=== PATIENT | female | born 1965 | race Two or more races ===

== ENCOUNTER → 2022-07-08 | Day surgery (SDC) | payer OTHER | END | disposition home or self-care (01) | LOC: FRADUS-SUR 11:59 | PROVIDERS: ATTEND Advanced Practice Midwife | PROC: 0HBT3ZX Excision of Right Breast, Percutaneous Approach, Diagnostic (ICD-10-PCS; principal; 2022-07-08) | DX: N60.11 Diffuse cystic mastopathy of right breast (principal); N62 Hypertrophy of breast; N60.81 Other benign mammary dysplasias of right breast; N64.89 Other specified disorders of breast; N63.14 Unspecified lump in the right breast, lower inner quadrant | CPT/HCPCS: 19085; 77065-TC; 88305-TC; 88341-TC; 88342-TC; A4648; A9579; C1887 ==